=== PATIENT | male | born 1965 | race Two or more races ===

== ENCOUNTER 2016-10-24 14:44 | Day surgery (SDC) | END 2016-10-24 18:02 | disposition home or self-care (01) | DX: K20.8 Other esophagitis (principal); K29.70 Gastritis, unspecified, without bleeding | CPT/HCPCS: 43239; 88305; 88312; J2250; J3010; Z7610 ==

== ENCOUNTER 2016-11-10 13:22 | Day surgery (SDC) | payer OTHER ==
[~2016-11-10] VITALS: Ht 172.7 cm; Wt 76.8 kg
[2016-11-10 13:54] VITALS: Ht 172.7 cm; Wt 76.8 kg
[2016-11-10 14:16] VITALS: BP 118/65; PULSE 60; RESP 18
[2016-11-10] MEDS ORDERED: FENTAnyl 50 MCG/ML VIAL ONE (14:48)
[2016-11-10] MEDS ORDERED: MIDAZOLAM 1 MG/ML 2 ML INJ ONE ×2 (14:48)
[2016-11-10 15:02] VITALS: BP 111/70; RESP 14
--- NOTE | 2016-11-11 04:22 | GILP ---
DATE OF PROCEDURE: 11/10/2016 PREOP DIAGNOSIS: Screening colonoscopy. POSTOP DIAGNOSIS: Normal colonoscopy. PROCEDURE PERFORMED: The patient was put in left lateral decubitus. After obtaining informed consent, he was sedated, monitored with oximetry, EKG, and blood pressure. He was given 3 mg IV Versed and 75 mcg of fentanyl. Rectal exam was done, which was normal. Advanced the Olympus video colonoscope all the way to cecum. Appendiceal opening and ileocecal valve identified. I watched the cecum due to seeds. Upon clearing, it was essentially normal. Cecum normal. Ascending colon, transverse colon, descending colon were normal. Sigmoid colon was essentially normal, except for tortuosity. Rectum was demonstrated as essentially normal, including retroflexion. Upon removal of scope, patient had no complication. PLAN: Plan will be to observe. Await for any other complaints. Otherwise, follow up with Dr. Higuera [____]. Repeat colonoscopy in 10 years. Dictated By: Mell Diane MD /[email or web address]/[email or web address] /Document#: [id number]
== END 2016-11-10 18:13 | disposition home or self-care (01) ==
LOC: GIL 13:22
PROVIDERS: ATTEND Internal Medicine
DX: Z12.11 Encounter for screening for malignant neoplasm of colon (principal)
CPT/HCPCS: 45378; J2250; J3010; Z7610